=== PATIENT | female | born 1950 ===

== ENCOUNTER 2018-02-11 11:42 | Emergency (ER) | payer OTHER ==
[2018-02-11 11:45] VITALS: BMI 19.5
--- NOTE | 2018-02-11 12:43 | ED PDOC ---
HPI: Head Injury Time Seen by Provider: 02/11/18 12:08 Chief Complaint (Nursing): Headache Chief Complaint (Provider): Head Injury History Per: Patient History/Exam Limitations: no limitations Injury Occurred (Timing): Just Before Arrival Onset/Duration Of Symptoms: Mins (prior to arrival) Patient States: Fell Striking Head Loss Of Consciousness: No Additional Complaint(s): 67 year old female with history of osteoporosis presents to the ED for evaluation after a fall that occurred just prior to arrival. Patient reports she slipped and fell while mopping, hitting the back of her head on the floor. She is accompanied by colleagues who witnessed the incident. Colleagues state that she appeared dazed but did not lose consciousness. Patient now complains of pain in the back of her head and mild lower back pain. Denies hip pain, chest pain and dizziness. PMD: Dr. Kallie Stewart Past Medical History Reviewed: Historical Data, Nursing Documentation, Vital Signs Vital Signs: Last Vital Signs Temp 97.9 F 02/11/18 11:45 Pulse 65 02/11/18 11:45 Resp 16 02/11/18 11:45 BP 174/92 H 02/11/18 11:45 Pulse Ox 98 02/11/18 11:51 - Medical History PMH: Osteoporosis - Surgical History Other surgeries: breast cyst removal and uterine fibroidectomy - Family History Family History: States: Unknown Family Hx - Social History Current smoker - smoking cessation education provided: No Alcohol: None Drugs: Denies - Immunization History Hx Tetanus Toxoid Vaccination: No Hx Influenza Vaccination: No Hx Pneumococcal Vaccination: No - Home Medications Home Medications: Ambulatory Orders Medication Instructions Recorded Tobramycin 0.3% [Tobramycin 5 Ml] 1 drop OU TID #1 bottle 03/18/15 Ibuprofen [Ibu] 400 mg PO Q6 PRN #12 tablet 02/11/18 - Allergies Allergies/Adverse Reactions: Allergies Allergy/AdvReac Type Severity Reaction Status Date / Time No Known Allergies Allergy Verified 02/11/18 11:51 Review of Systems ROS Statement: Except As Marked, All Systems Reviewed And Found Negative Musculoskeletal: Positive for: Back Pain (lower) Neurological: Positive for: Headache Physical Exam - Reviewed Nursing Documentation Reviewed: Yes Vital Signs Reviewed: Yes - Physical Exam Appears: Positive for: Non-toxic, No Acute Distress Head Exam: Positive for: ATRAUMATIC, NORMOCEPHALIC Skin: Positive for: Normal Color, Warm, Dry Eye Exam: Positive for: EOMI, Normal appearance, PERRL Neck: Positive for: Normal, Painless ROM, Supple Cardiovascular/Chest: Positive for: Regular Rate, Rhythm Respiratory: Positive for: CNT, Normal Breath Sounds Gastrointestinal/Abdominal: Positive for: Normal Exam, Soft Back: Positive for: Other (mild lower back tenderness) Extremity: Positive for: Normal ROM. Negative for: Deformity Neurologic/Psych: Positive for: Alert, Oriented. Negative for: Motor/Sensory Deficits Comments: HEAD: mild occipital scalp tenderness with small scalp hematoma - ECG O2 Sat by Pulse Oximetry: 98 (RA) Pulse Ox Interpretation: Normal Medical Decision Making Medical Decision Making: Time; 12:17 Impression: workup for fall Initial Plan: --C- Spine CT --Head CT without contrast --Lumbar spine CT --Tylenol 650 mg PO Given history of osteoporosis, patient will receive CT of lumbar spine. CT C-spine FINDINGS: VERTEBRAE: No fracture. Normal alignment. No destructive bony lesion. DISCS/SPINAL CANAL/NEURAL FORAMINA: No significant central canal or neural foraminal stenosis. Discs heights are grossly preserved. PARASPINAL SOFT TISSUES: Unremarkable. OTHER FINDINGS: None. IMPRESSION: Unremarkable CT of the cervical spine. Head CT FINDINGS: HEMORRHAGE: No intracranial hemorrhage. BRAIN: No mass effect or edema. No atrophy or chronic microvascular ischemic changes. VENTRICLES: Unremarkable. No hydrocephalus. CALVARIUM: Unremarkable. PARANASAL SINUSES: Unremarkable as visualized. No significant inflammatory changes. MASTOID AIR CELLS: Unremarkable as visualized. No inflammatory changes. OTHER FINDINGS: None. IMPRESSION: No acute intracranial abnormalities. No significant findings to account for the clinical presentation. CT reports reviewed and discussed w patient in haitian via Ansley Joya elephant keeper DC from [facility]. Head injury instructions provided. Scribe Attestation: Documented by Miriam Adame, acting as a scribe for Vance Waters III, DO Provider Scribe Attestation: All medical record entries made by the Scribe were at my direction and personally dictated by me. I have reviewed the chart and agree that the record accurately reflects my personal performance of the history, physical exam, medical decision making, and the department course for this patient. I have also personally directed, reviewed, and agree with the discharge instructions and disposition. Disposition - Clinical Impression Clinical Impression: Concussion, Head injury - Patient ED Disposition Is Patient to be Admitted: No Counseled Patient/Family Regarding: Studies Performed, Diagnosis, Need For Followup, Rx Given - Disposition Disposition: Routine/Home Disposition Time: 15:01 Condition: STABLE Additional Instructions: Return to ER for any worse or new symptoms. Prescriptions: Ibuprofen [Ibu] 400 mg PO Q6 PRN #12 tablet PRN Reason: Pain, Moderate (4-7) Instructions: Concussion in Adults, Closed Head Injury Forms: [facility] (Swedish)
--- NOTE | 2018-02-11 13:32 | CT ---
PROCEDURE: CT HEAD WITHOUT CONTRAST. HISTORY: Head injury. COMPARISON: None available. TECHNIQUE: Axial computed tomography images were obtained through the head/brain without intravenous contrast. Coronal and sagittal reconstructed images. Radiation dose: Total exam DLP = 637.45 mGy-cm. This CT exam was performed using one or more of the following dose reduction techniques: Automated exposure control, adjustment of the mA and/or kV according to patient size, and/or use of iterative reconstruction technique. FINDINGS: HEMORRHAGE: No intracranial hemorrhage. BRAIN: No mass effect or edema. No atrophy or chronic microvascular ischemic changes. VENTRICLES: Unremarkable. No hydrocephalus. CALVARIUM: Unremarkable. PARANASAL SINUSES: Unremarkable as visualized. No significant inflammatory changes. MASTOID AIR CELLS: Unremarkable as visualized. No inflammatory changes. OTHER FINDINGS: None. IMPRESSION: No acute intracranial abnormalities. No significant findings to account for the clinical presentation.
--- NOTE | 2018-02-11 13:35 | CT ---
PROCEDURE: CT Cervical Spine without contrast HISTORY: Trauma COMPARISON: None available. TECHNIQUE: Axial computed tomography images were obtained of the cervical spine without the use of intravenous contrast. Coronal and sagittal reformatted images were created and reviewed. Radiation dose: Total exam DLP = 0303.91 mGy-cm. This CT exam was performed using one or more of the following dose reduction techniques: Automated exposure control, adjustment of the mA and/or kV according to patient size, and/or use of iterative reconstruction technique. FINDINGS: VERTEBRAE: No fracture. Normal alignment. No destructive bony lesion. DISCS/SPINAL CANAL/NEURAL FORAMINA: No significant central canal or neural foraminal stenosis. Discs heights are grossly preserved. PARASPINAL SOFT TISSUES: Unremarkable. OTHER FINDINGS: None. IMPRESSION: Unremarkable CT of the cervical spine.
--- NOTE | 2018-02-11 14:50 | CT ---
PROCEDURE: CT Lumbar Spine without contrast HISTORY: fall back pain hx osteoporosis COMPARISON: None. TECHNIQUE: Axial computed tomography images were obtained of the lumbar spine without the use of intravenous contrast. Coronal and sagittal reformatted images were created and reviewed. Radiation dose: Total exam DLP = 258.51 MGy-cm. This CT exam was performed using one or more of the following dose reduction techniques: Automated exposure control, adjustment of the mA and/or kV according to patient size, and/or use of iterative reconstruction technique. FINDINGS: VERTEBRAE: A grade 5 spondylolisthesis, so-called spondyloptosis, is identified with L5 vertebral body appearing anterior and slightly inferior to S1 vertebral body appearing fused to it as well. . Further, there is a limited grade 1 spondylolisthesis at L1-2 identified on the basis of facet joint degenerative change. Similar spondylolisthesis present L4-5 due to right-sided spondylolysis with none on the left. Vertebral bodies appear intact nevertheless DISCS/SPINAL CANAL/NEURAL FORAMINA: L1-2: Unremarkable. L2-3: Unremarkable. L3-4: Disc osteophyte complex is combined with facet degenerative change encroaching the lateral recesses without causing significant central canal stenosis. No significant neural foraminal stenosis. L4-5: A generalized disc bulge combines with facet arthropathy encroaching the lateral recesses symmetrically without causing significant central canal stenosis. No significant neural foraminal stenosis. L5-S1: Gross spondylolisthesis cause the central canal to return from vertical to horizontal without severe central stenosis paradoxically. PARASPINAL SOFT TISSUES: Unremarkable. OTHER FINDINGS: None. IMPRESSION: Spondyloptosis at L5-S1 is identified with fusion of the subluxed vertebral body with S1 anteriorly, as discussed above. The centralized canal approximate 90 degrees and is horizontal at this level rather than a vertical or curved but without prominent central canal stenosis. This is a chronic finding. Limited degenerative changes and lesser spondylolistheses L1-2 and L4-5.
[2018-02-11 15:41] VITALS: BP 161/95; PULSE 61; RESP 18; TEMP 98.4; O2SAT 100
== END 2018-02-11 15:41 | disposition home or self-care (01) ==
LOC: H.ER 11:42
DX: S06.0X0A Concussion without loss of consciousness, initial encounter (principal); W01.0XXA Fall on same level from slipping, tripping and stumbling without subsequent striking against object, initial encounter; Y92.89 Other specified places as the place of occurrence of the external cause; M81.0 Age-related osteoporosis without current pathological fracture